=== PATIENT | female | born 1950 | race Caucasian/White ===

== ENCOUNTER → 2017-10-05 | Outpatient (CLI) | payer MEDICARE ==
--- NOTE | 2017-10-06 14:46 | MM ---
Reason for exam: screening (asymptomatic). Last mammogram was performed 2 years and 8 months ago. History: Patient history of other cancer. MG 3D Screening Mammo W/Cad Bilateral CC and MLO view(s) were taken. Prior study comparison: January 25, 2015, mammogram, performed at [facility]. There are scattered fibroglandular densities. There is chronic nodularity bilaterally. No significant changes when compared with prior studies. ASSESSMENT: Negative, BI-RAD 1 RECOMMENDATION: Routine screening mammogram of both breasts in 1 year.
== END | disposition home or self-care (01) ==
LOC: RADMAMWWP 16:40
PROVIDERS: ATTEND Family Medicine
DX: Z12.31 Encounter for screening mammogram for malignant neoplasm of breast (principal)
CPT/HCPCS: 77063; 77067

== ENCOUNTER 2019-02-13 12:47 | Emergency (ER) | payer MEDICARE ==
[2019-02-13 13:51] VITALS: TEMP 98.6
[2019-02-13] MEDS ORDERED: KETOROLAC 30 MG/ML 1 ML VIAL IVP STA (14:23)
[2019-02-13] MEDS ORDERED: ONDANSETRON 4 MG/2 ML VIAL IVP STA (14:23)
[2019-02-13] MEDS ORDERED: SODIUM CHLORIDE 0.9% 1,000 ML IV STA (14:23)
[2019-02-13 14:49] LABS: Basophils # (A) 0.1 k/uL (0-0.2); Basophils % (A) 1 %; Eosinophils # (A) 0.1 k/uL (0-0.7); Eosinophils % (A) 1 %; HCT 49.1 % (34.0-46.0); HGB 15.9 gm/dL (11.4-16.0); Lymphocytes # (A) 3.1 k/uL (1.0-4.8); Lymphocytes % (A) 31 %; MCHC 32.4 g/dL (31.0-37.0); MCV 92.5 fL (80.0-100.0); Mean Platelet Volume 6.9; Monocytes # (A) 0.6 k/uL (0-1.0); Monocytes % (A) 6 %; Neutrophils # (A) 6.1 k/uL (1.3-7.7); Neutrophils % (A) 60 %; Platelet Count 264 k/uL (150-450); RBC 5.31 m/uL (3.80-5.40); RDW 15.2 % (11.5-15.5); WBC 10.1 k/uL (3.8-10.6)
--- NOTE | 2019-02-13 14:55 | ED ---
General Adult HPI - General Chief complaint: Recheck/Abnormal Lab/Rx Stated complaint: Growing lump, not eating Time Seen by Provider: 02/13/19 13:58 Source: patient Mode of arrival: ambulatory Limitations: no limitations - History of Present Illness Initial comments: Patient is a 68-year-old female presenting to the ER with complaints of a lump on her left upper quadrant that has been there for 1 year, but states it is getting worse last week. Patient states she spoke to her PCP regarding the lump on the left side of her abdomen but states nothing was really done about it. Patient states in the last week she is having a lot more abdominal pain, thinks the growth is growing, and she is experiencing nausea, pain radiating to her back, fatigue, and pain when she eats food. Patient also admits to having night sweats as well as sweating periods during the day. Patient denies having fever, chills, vomiting, diarrhea. Patient states her last BM was this morning and was normal for her. 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 She actually has a follow-up appointment with her surgeon tomorrow to discuss whether or not she needs radiation to the area. Patient also admits to having a small portion of her bowel resected due to a small cancerous lesion that was found about 6 years ago. She did not require any additional treatment after the surgery. - Related Data Home Medications Medication Instructions Recorded Confirmed ALPRAZolam [Xanax] 0.5 mg PO DAILY PRN 02/13/19 02/13/19 Cholecalciferol [Vitamin D3 (25 1,000 unit PO DAILY 02/13/19 02/13/19 Mcg = 1000 Iu)] traMADol HCL [Ultram] 50 mg PO DAILY PRN 02/13/19 02/13/19 Allergies Allergy/AdvReac Type Severity Reaction Status Date / Time meperidine [From Demerol] Allergy Unknown Verified 02/13/19 18:07 Childhood risedronate sodium AdvReac BONES HURT Verified 02/13/19 18:07 [From Actonel] Review of Systems ROS Statement: Those systems with pertinent positive or pertinent negative responses have been documented in the HPI. ROS Other: All systems not noted in ROS Statement are negative. Past Medical History Additional Past Medical History / Comment(s): perirectal ca, eye spasms, atrhtitis, vericus foot ca History of Any Multi-Drug Resistant Organisms: None Reported Past Surgical History: Tubal Ligation Additional Past Surgical History / Comment(s): perirectalt umor removed, verucus foot tumor removed, bowel resection r/t precancerous Past Psychological History: Anxiety Smoking Status: Never smoker Past Alcohol Use History: None Reported Past Drug Use History: None Reported General Exam - General Exam Comments Initial Comments: GENERAL: Well-appearing, well-nourished and in no acute distress. HEAD: Atraumatic, normocephalic. EYES: Pupils equal round and reactive to light, extraocular movements intact, sclera anicteric, conjunctiva are normal. ENT: TMs normal, nares patent, oropharynx clear without exudates. Moist mucous membranes. NECK: Normal range of motion, supple without lymphadenopathy or JVD. LUNGS: Breath sounds clear to auscultation bilaterally and equal. No wheezes rales or rhonchi. HEART: Regular rate and rhythm without murmurs, rubs or gallops. ABDOMEN: Generalized tenderness to all quadrants, increased tenderness to the left upper quadrant. Soft, normoactive bowel sounds. No guarding, no rebound. No masses appreciated. : Deferred EXTREMITIES: Normal range of motion, no pitting or edema. No clubbing or cyano sis. NEUROLOGICAL: Cranial nerves II through XII grossly intact. Normal speech, normal gait. PSYCH: Normal mood, normal affect. SKIN: Warm, Dry, normal turgor, no rashes or lesions noted. Limitations: no limitations Course Vital Signs 02/13/19 02/13/19 02/13/19 13:46 15:02 15:03 Temperature 98.6 F Pulse Rate 95 80 82 Respiratory 18 18 18 Rate Blood Pressure 135/79 135/79 135/79 O2 Sat by Pulse 98 96 96 Oximetry 02/13/19 02/13/19 02/13/19 15:30 16:30 17:00 Temperature Pulse Rate 86 82 85 Respiratory 18 16 18 Rate Blood Pressure 135/79 127/60 125/62 O2 Sat by Pulse 98 99 96 Oximetry 02/13/19 18:00 Temperature Pulse Rate 80 Respiratory 17 Rate Blood Pressure 141/79 O2 Sat by Pulse 95 Oximetry Medical Decision Making - Medical Decision Making Patient is a 68-year-old female complaining of left upper quadrant abdominal pain along with a lump times one week. Patient states she has had a lump there for over a year but the last week has increased in pain and size. Patient admits to history of a. Anal tumor that was removed as 6 months ago and also a small lesion in her colon that was resected about 6 years ago. Patient states she's been having increase in pain with eating, fatigue, and sweats at nighttime. On exam patient has generalized abdominal tenderness with an increase in tenderness in the left upper quadrant. Patient denies fever, chills, vomiting, diarrhea. CBC, coags, CMP, urine are all within normal limits. Chest x-ray reveals possible COPD. No acute processes. CT of the abdomen has a few nonspecific findings. There is no soft tissue mass or intra-abdominal mass identified in the left side of the abdomen. Patient does have a 1.5 cm left adrenal adenoma , 2.9 cm left ovarian cyst, and 5.6 cm right renal cyst. Findings were discussed with patient and she was given a copy of the CT results. Patient will be discharged home with follow-up with her PCP. Patient is okay with these findings. Case discussed with Dr. Bah. - Lab Data Result diagrams: 02/13/19 14:35 02/13/19 14:35 Lab Results 02/13/19 02/13/19 02/13/19 Range/Units 14:35 14:35 14:35 WBC 10.1 (3.8-10.6) k/uL RBC 5.31 (3.80-5.40) m/uL Hgb 15.9 (11.4-16.0) gm/dL Hct 49.1 H (34.0-46.0) % MCV 92.5 (80.0-100.0) fL MCH 30.0 (25.0-35.0) pg MCHC 32.4 (31.0-37.0) g/dL RDW 15.2 (11.5-15.5) % Plt Count 264 (150-450) k/uL Neutrophils % 60 % Lymphocytes % 31 % Monocytes % 6 % Eosinophils % 1 % Basophils % 1 % Neutrophils # 6.1 (1.3-7.7) k/uL Lymphocytes # 3.1 (1.0-4.8) k/uL Monocytes # 0.6 (0-1.0) k/uL Eosinophils # 0.1 (0-0.7) k/uL Basophils # 0.1 (0-0.2) k/uL PT 9.4 (9.0-12.0) sec INR 0.9 (<1.2) APTT 22.4 (22.0-30.0) sec Sodium 140 (137-145) mmol/L Potassium 4.2 (3.5-5.1) mmol/L Chloride 103 (98-107) mmol/L Carbon Dioxide 27 (22-30) mmol/L Anion Gap 10 mmol/L BUN 15 (7-17) mg/dL Creatinine 0.88 (0.52-1.04) mg/dL Est GFR (CKD-EPI)AfAm 79 (>60 ml/min/1.73 sqM) Est GFR (CKD-EPI)NonAf 69 (>60 ml/min/1.73 sqM) Glucose 88 (74-99) mg/dL Calcium 9.9 (8.4-10.2) mg/dL Total Bilirubin 0.4 (0.2-1.3) mg/dL AST 24 (14-36) U/L ALT 24 (9-52) U/L Alkaline Phosphatase 81 (38-126) U/L Total Protein 7.6 (6.3-8.2) g/dL Albumin 4.6 (3.5-5.0) g/dL Amylase 65 (30-110) U/L Lipase 131 (23-300) U/L Urine Color Urine Appearance (Clear) Urine pH (5.0-8.0) Ur Specific [place] (1.001-1.035) Urine Protein (Negative) Urine Glucose (UA) (Negative) Urine Ketones (Negative) Urine Blood (Negative) Urine Nitrite (Negative) Urine Bilirubin (Negative) Urine Urobilinogen (<2.0) mg/dL Ur Leukocyte Esterase (Negative) Urine RBC (0-5) /hpf Urine WBC (0-5) /hpf Ur Squamous Epith Cells (0-4) /hpf Hyaline Casts (0-2) /lpf Urine Mucus (None) /hpf 02/13/ Range/Units 15:10 WBC (3.8-10.6) k/uL RBC (3.80-5.40) m/uL Hgb (11.4-16.0) gm/dL Hct (34.0-46.0) % MCV (80.0-100.0) fL MCH (25.0-35.0) pg MCHC (31.0-37.0) g/dL RDW (11.5-15.5) % Plt Count (150-450) k/uL Neutrophils % % Lymphocytes % % Monocytes % % Eosinophils % % Basophils % % Neutrophils # (1.3-7.7) k/uL Lymphocytes # (1.0-4.8) k/uL Monocytes # (0-1.0) k/uL Eosinophils # (0-0.7) k/uL Basophils # (0-0.2) k/uL PT (9.0-12.0) sec INR (<1.2) APTT (22.0-30.0) sec Sodium (137-145) mmol/L Potassium (3.5-5.1) mmol/L Chloride (98-107) mmol/L Carbon Dioxide (22-30) mmol/L Anion Gap mmol/L BUN (7-17) mg/dL Creatinine (0.52-1.04) mg/dL Est GFR (CKD-EPI)AfAm (>60 ml/min/1.73 sqM) Est GFR (CKD-EPI)NonAf (>60 ml/min/1.73 sqM) Glucose (74-99) mg/dL Calcium (8.4-10.2) mg/dL Total Bilirubin (0.2-1.3) mg/dL AST (14-36) U/L ALT (9-52) U/L Alkaline Phosphatase (38-126) U/L Total Protein (6.3-8.2) g/dL Albumin (3.5-5.0) g/dL Amylase (30-110) U/L Lipase (23-300) U/L Urine Color Yellow Urine Appearance Clear (Clear) Urine pH 5.5 (5.0-8.0) Ur Specific [place] 1.011 (1.001-1.035) Urine Protein Negative (Negative) Urine Glucose (UA) Negative (Negative) Urine Ketones Negative (Negative) Urine Blood Small H (Negative) Urine Nitrite Negative (Negative) Urine Bilirubin Negative (Negative) Urine Urobilinogen <2.0 (<2.0) mg/dL Ur Leukocyte Esterase Negative (Negative) Urine RBC 4 (0-5) /hpf Urine WBC 1 (0-5) /hpf Ur Squamous Epith Cells 1 (0-4) /hpf Hyaline Casts 3 H (0-2) /lpf Urine Mucus Rare H (None) /hpf Disposition Clinical Impression: Abdominal pain Disposition: HOME SELF-CARE Condition: Stable Instructions (If sedation given, give patient instructions): Abdominal Pain (ED) Additional Instructions: Please return to the Emergency Department if symptoms worsen or any other concerns. Follow-up with PCP as discussed. Is patient prescribed a controlled substance at d/c from ED?: No Referrals: Regulo Martino MD [Primary Care Provider] - 1-2 days
[2019-02-13 14:57] LABS: Albumin 4.6 g/dL (3.5-5.0); Calcium 9.9 mg/dL (8.4-10.2); Potassium 4.2 mmol/L (3.5-5.1); Total Bilirubin 0.4 mg/dL (0.2-1.3); Total Protein 7.6 g/dL (6.3-8.2)
[2019-02-13 14:59] LABS: INR 0.9 (<1.2); Partial Thromboplastin Time 22.4 sec (22.0-30.0); Prothrombin Time 9.4 sec (9.0-12.0)
[2019-02-13 15:21] LABS: Appearance,Urine Clear (Clear); Bilirubin,Urine Negative (Negative); Blood,Urine Small (Negative); Color,Urine Yellow; Glucose,Urine (UA) Negative (Negative); Hyaline Casts,Urine 3 /lpf (0-2); Ketones,Urine Negative (Negative); Leukocyte Esterase,Urine Negative (Negative); Mucus,Urine Rare /hpf; Nitrite,Urine Negative (Negative); PH, Urine 5.5 (5.0-8.0); Protein,Urine Negative (Negative); RBC,Urine 4 /hpf (0-5); Specific Gravity,Urine 1.011 (1.001-1.035); Squamous Epithelial Cell,Urine 1 /hpf (0-4); Urobilinogen,Urine <2.0 mg/dL (<2.0)
--- NOTE | 2019-02-13 16:19 | XR ---
EXAMINATION TYPE: XR chest 2V DATE OF EXAM: 02/13/2019 COMPARISON: None HISTORY: 68-year-old female cough and pain TECHNIQUE: PA and lateral views FINDINGS: The cardiomediastinal silhouette, aorta, and pulmonary vasculature are within normal limits. Mild int erstitial prominence and mild hyperinflation. Otherwise, lungs and pleural spaces are clear. IMPRESSION: Possible underlying COPD. No acute cardiopulmonary process.
--- NOTE | 2019-02-13 17:40 | CT ---
EXAMINATION TYPE: CT abdomen pelvis w con DATE OF EXAM: 02/13/2019 COMPARISON: 09/21/2010 HISTORY: 68-year-old female with pain, Lump to left abdomen since May 2018. TECHNIQUE: Contiguous axial scanning of the abdomen and pelvis following administration of 100 ml Iso mary beth 300 IV contrast. Delayed images through the kidneys and coronal/sagittal reconstructions perform ed. CT DLP: 589.2 mGycm Automated exposure control for dose reduction was used. FINDINGS: Heart normal size with trace anterior pericardial fluid. Lung bases clear with some strandy atelectasis. Mild emphysematous change at the lung bases. Tiny hiatal hernia. Low attenuation of the hepatic parenchyma without focal lesion seen. Portal venous system is patent. No biliary ductal dilatation. Gallbladder, right adrenal gland, spleen, and pancreas appear within normal limits. 1.5 cm nodularity left adrenal gland slightly larger from 1.3 cm in 2011. Findings suggest a benign a nd underlying adrenal adenoma. A large anterior cyst right kidney measures 5.6 cm versus 3.6 cm back in 2011. Moderate are atherosclerotic calcifications infrarenal abdominal aorta and iliac arteries. No dilated small bowel, free fluid, or free air. No mesenteric or retroperitoneal lymphadenopathy. There is moderate stool burden without pericolonic inflammatory change. A sided colonic diverticulosi s, greatest in the sigmoid colon. Some surgical material is present along the cecum. Bladder urine distended. Uterus and ovaries are visualized. 2.9 cm cystic lesion of the left ovary la rger from 1.9 cm back in 2010. No abnormal fluid collection in the pelvis or pelvic lymphadenopathy s een. Bones: Degenerative changes at the hips. Hypertrophic facet arthropathy and multilevel degenerative d isc disease throughout the visualized spine. IMPRESSION: 1. NO DISCRETE SUBCUTANEOUS SOFT TISSUE MASS OR INTRA-ABDOMINAL MASS IS IDENTIFIED, ESPECIALLY ON THE LEFT SIDE OF THE ABDOMEN. THE EXAM CAN BE REVIEWED WITH DIRECTED ATTENTION IF PERSISTENT CLINICAL CO NCERN. 2. A 1.5 CM LEFT ADRENAL ADENOMA IS SLIGHTLY LARGER FROM 2010 WHERE IT MEASURED 1.3 CM. 3. A 2.9 CM LEFT OVARIAN CYSTIC LESION IS LARGER FROM 2010 WHERE IT MEASURED 1.9 CM. NONEMERGENT FOLL OW-UP PELVIC ULTRASOUND CAN FURTHER CHARACTERIZE AND ESTABLISH FOLLOW-UP GUIDELINES IN THIS POSTMENOP AUSAL PATIENT. 4. A 5.6 CM RIGHT RENAL CYST INCREASED IN SIZE FROM 3.6 CM BACK IN 2010. 5. HEPATIC STEATOSIS AND TINY HIATAL HERNIA. 6. LEFT-SIDED COLONIC DIVERTICULOSIS WITHOUT ACUTE DIVERTICULITIS.
[2019-02-13 18:48] VITALS: BP 133/68; PULSE 72; RESP 18
== END 2019-02-13 19:02 | disposition home or self-care (01) ==
LOC: EC 12:47
DX: R10.84 Generalized abdominal pain (principal); D35.02 Benign neoplasm of left adrenal gland; N83.202 Unspecified ovarian cyst, left side; N28.1 Cyst of kidney, acquired; Z85.048 Personal history of other malignant neoplasm of rectum, rectosigmoid junction, and anus; Z79.899 Other long term (current) drug therapy; Z88.5 Allergy status to narcotic agent; Z88.8 Allergy status to other drugs, medicaments and biological substances
CPT/HCPCS: 36415; 80053; 82150; 83690; 85025; 85610; 85730; 81001; 71046; 74177; 99284; 96374; 96375; 96361; J2405; J1885; Q9967

== ENCOUNTER → 2021-12-05 | Outpatient (CLI) | payer MEDICARE ==
--- NOTE | 2021-12-05 15:32 | US ---
EXAMINATION TYPE: US pelvis complete transvag DATE OF EXAM: 12/05/2021 COMPARISON: CT dated 02/13/2019 CLINICAL HISTORY: R10.2 PELVIC AND PERINEAL PAIN. Pelvic pain on the right side. Hx 2 C Sections, quentin endectomy. Hx left ovarian cyst. . TECHNIQUE: Transvaginal (TV) and Transabdominal (TA) . Transabdominal sonographic images of the pel vis were acquired. Transvaginal sonographic images were medically necessary to better assess the fol lowing anatomy: Right ovary. Date of LMP: About 20 years ago. EXAM MEASUREMENTS: Uterus: 5.5 x 3.6 x 1.9 cm Endometrial Stripe: 0.30 cm Right Ovary: Obscured. Left Ovary: 3.8 x 2.5 x 2.7 cm 1. Uterus: Anteverted 2. Endometrium: Measures 0.3 cm. 3. Right Ovary: Obscured. 4. Left Ovary: Anechoic area seen: 2.8 x 1.8 x 2.0 cm. 5. Bilateral Adnexa: Appears wnl. 6. Posterior cul-de-sac: Fluid visualized. IMPRESSION: Left ovarian cyst is chronic
== END | disposition home or self-care (01) ==
LOC: RADUSWWP 13:59
PROVIDERS: ATTEND Family Medicine
DX: N83.202 Unspecified ovarian cyst, left side (principal)
CPT/HCPCS: 76830; 76856

== ENCOUNTER 2022-02-12 17:01 | Emergency (ER) | payer MEDICARE ==
[2022-02-12 17:53] VITALS: TEMP 97.9
[2022-02-12] MEDS ORDERED: SODIUM CHLORIDE 0.9% 1,000 ML IV STA (19:20)
[2022-02-12] MEDS ORDERED: KETOROLAC 15 MG/ML 1 ML VIAL IVP STA (19:20)
--- NOTE | 2022-02-12 19:27 | ED ---
Abdominal Pain HPI - General Chief Complaint: Abdominal Pain Stated Complaint: L side/back pain Time Seen by Provider: 02/12/22 19:12 Source: patient, RN notes reviewed Mode of arrival: wheelchair Limitations: no limitations - History of Present Illness Initial Comments: This is a pleasant 71-year-old female presents to emergency complaining of left flank pain. Patient states that she fell about one week ago and had some soreness on that side. However she states that it was very mild. Patient states last night she started getting pain in the left flank which seems to radiate from her left CVA area around to her groin. Patient states this is made worse with movement and palpation. Assistances that she has some shortness of breath. She states she's had sporadic and fleeting chest pains. Patient denying any hematuria. Denies any nausea or vomiting. Pain is alleviated by position. Note that the patient does have a history of melanoma. No recent surgeries. No headache, no fever or chills, no changes in vision or hearing, no sore throat or difficulty with speech, no neck pain, no nausea or vomiting, no changes in urination or bowel movements, no numbness or tingling, no extremity pain, no skin rashes or lesions. MD Complaint: flank pain - Related Data Home Medications Medication Instructions Recorded Confirmed ALPRAZolam [Xanax] 0.5 mg PO HS 02/13/19 02/12/22 Allergies Allergy/AdvReac Type Severity Reaction Status Date / Time meperidine [From Demerol] Allergy Unknown Verified 02/12/22 22:26 Childhood risedronate sodium AdvReac BONES HURT Verified 02/12/22 22:26 [From Actonel] Review of Systems ROS Statement: Those systems with pertinent positive or pertinent negative responses have been documented in the HPI. ROS Other: All systems not noted in ROS Statement are negative. Past Medical History Additional Past Medical History / Comment(s): perirectal ca, eye spasms, atrhtitis, vericus foot ca History of Any Multi-Drug Resistant Organisms: None Reported Past Surgical History: Tubal Ligation Additional Past Surgical History / Comment(s): perirectalt umor removed, verucus foot tumor removed, bowel resection r/t precancerous Past Psychological History: Anxiety Smoking Status: Never smoker Past Alcohol Use History: None Reported Past Drug Use History: None Reported General Exam - General Exam Comments Initial Comments: Patient does not appear to be ill or toxic. Vital signs reviewed Limitations: no limitations General appearance: alert, in no apparent distress Head exam: Present: atraumatic, normocephalic, normal inspection Eye exam: Present: normal appearance, PERRL, EOMI. Absent: scleral icterus, conjunctival injection, periorbital swelling ENT exam: Present: normal exam, normal oropharynx, mucous membranes moist, normal external ear exam. Absent: mucous membranes dry Neck exam: Present: normal inspection, full ROM. Absent: tenderness, meningismus, lymphadenopathy Respiratory exam: Present: normal lung sounds bilaterally, chest wall tenderness (Left chest wall overlying the lower ribs, also reproducible with range of motion of the torso). Absent: respiratory distress, wheezes, rales, rhonchi, stridor, accessory muscle use, decreased breath sounds, prolonged expiratory Cardiovascular Exam: Present: regular rate, normal rhythm, normal heart sounds. Absent: systolic murmur, diastolic murmur, rubs, gallop, clicks GI/Abdominal exam: Present: soft, normal bowel sounds. Absent: distended, tenderness, guarding, rebound, rigid Extremities exam: Present: normal inspection, full ROM, normal capillary refill. Absent: tenderness, pedal edema, joint swelling, calf tenderness Back exam: Present: normal inspection Neurological exam: Present: alert, oriented X3, CN II-XII intact Psychiatric exam: Present: normal affect, normal mood Skin exam: Present: warm, dry, intact, normal color. Absent: rash Course Vital Signs 02/12/22 02/12/22 17:51 23:48 Temperature 97.9 F Pulse Rate 100 92 Respiratory 16 15 Rate Blood Pressure 166/81 157/92 O2 Sat by Pulse 97 97 Oximetry - Reevaluation(s) Reevaluation #1: 02/12/22 23:27 Medical record is reviewed Symptoms are improved here in the emergency department Patient is informed of results and questions answered Patient in no distress Medical Decision Making - Medical Decision Making Patient is PERC 2. Patient's CT of the pelvis shows a 1.6 cm low density left adrenal mass which is unchanged from previous study, 6 cm right kidney cyst, no hydronephrosis, no evidence of ureterolithiasis, no hydroureter, no free fluid the study was read by radiology. There is sigmoid diverticulosis. CTA of the chest for pulmonary ambles and reveals no evidence of pulmonary embolism. No pulmonary mass. Minimal subsegmental atelectasis. Suspect the patient's injury is [place] skeletal. We did discuss possibility of rib contusion versus occult rib fracture. Patient's CT of the chest was essentially negative. CT of the abdomen did not show any evidence of ureteral stone or any reason for the patient's left flank pain. This is reproducible pain which is produced with palpation and range of motion. Patient was informed about the left adrenal mass and the right renal cyst. Early shingles possible less likely With the 7 red cells per high-power field there is a possibility of a recently passed. Patient's nonspecific fleeting chest wall pains are atypical. Does not appear to be consistent with ischemic pain. Troponin was negative. EKG showed no acute changes. Early shingles possible less likely The case was discussed in detail with ED attending physician. Presentation, findings, treatment plan discussed in detail. Marketing Traffic Manager Dr. Patel - Lab Data Result diagrams: 02/12/22 19:43 02/12/22 19:43 Lab Results 02/12/22 02/12/22 02/12/22 Range/Units 19:43 19:43 19:43 WBC 11.1 H (3.8-10.6) k/uL RBC 5.32 (3.80-5.40) m/uL Hgb 16.6 H (11.4-16.0) gm/dL Hct 50.9 H (34.0-46.0) % MCV 95.7 (80.0-100.0) fL MCH 31.1 (25.0-35.0) pg MCHC 32.5 (31.0-37.0) g/dL RDW 13.4 (11.5-15.5) % Plt Count 308 (150-450) k/uL MPV 6.9 Neutrophils % 65 % Lymphocytes % 27 % Monocytes % 4 % Eosinophils % 1 % Basophils % 2 % Neutrophils # 7.2 (1.3-7.7) k/uL Lymphocytes # 3.0 (1.0-4.8) k/uL Monocytes # 0.5 (0-1.0) k/uL Eosinophils # 0.1 (0-0.7) k/uL Basophils # 0.2 (0-0.2) k/uL D-Dimer (<0.60) mg/L FEU Sodium 137 (137-145) mmol/L Potassium 4.7 (3.5-5.1) mmol/L Chloride 101 (98-107) mmol/L Carbon Dioxide 28 (22-30) mmol/L Anion Gap 8 mmol/L BUN 12 (7-17) mg/dL Creatinine 0.96 (0.52-1.04) mg/dL Est GFR (CKD-EPI)AfAm 69 (>60 ml/min/1.73 sqM) Est GFR (CKD-EPI)NonAf 60 (>60 ml/min/1.73 sqM) Glucose 89 (74-99) mg/dL Calcium 10.0 (8.4-10.2) mg/dL Total Bilirubin 0.4 (0.2-1.3) mg/dL AST 25 (14-36) U/L ALT 20 (4-34) U/L Alkaline Phosphatase 105 (38-126) U/L Troponin I (0.000-0.034) ng/mL Total Protein 7.9 (6.3-8.2) g/dL Albumin 4.8 (3.5-5.0) g/dL Lipase 94 (23-300) U/L Urine Color Yellow Urine Appearance Clear (Clear) Urine pH 5.5 (5.0-8.0) Ur Specific [place] 1.009 (1.001-1.035) Urine Protein Trace H (Negative) Urine Glucose (UA) Negative (Negative) Urine Ketones Negative (Negative) Urine Blood Small H (Negative) Urine Nitrite Negative (Negative) Urine Bilirubin Negative (Negative) Urine Urobilinogen <2.0 (<2.0) mg/dL Ur Leukocyte Esterase Negative (Negative) Urine RBC 7 H (0-5) /hpf Ur Squamous Epith Cells 1 (0-4) /hpf 02/12/22 02/12/22 Range/Units 19:43 19:43 WBC (3.8-10.6) k/uL RBC (3.80-5.40) m/uL Hgb (11.4-16.0) gm/dL Hct (34.0-46.0) % MCV (80.0-100.0) fL MCH (25.0-35.0) pg MCHC (31.0-37.0) g/dL RDW (11.5-15.5) % Plt Count (150-450) k/uL MPV Neutrophils % % Lymphocytes % % Monocytes % % Eosinophils % % Basophils % % Neutrophils # (1.3-7.7) k/uL Lymphocytes # (1.0-4.8) k/uL Monocytes # (0-1.0) k/uL Eosinophils # (0-0.7) k/uL Basophils # (0-0.2) k/uL D-Dimer 0.65 H (<0.60) mg/L FEU Sodium (137-145) mmol/L Potassium (3.5-5.1) mmol/L Chloride (98-107) mmol/L Carbon Dioxide (22-30) mmol/L Anion Gap mmol/L BUN (7-17) mg/dL Creatinine (0.52-1.04) mg/dL Est GFR (CKD-EPI)AfAm (>60 ml/min/1.73 sqM) Est GFR (CKD-EPI)NonAf (>60 ml/min/1.73 sqM) Glucose (74-99) mg/dL Calcium (8.4-10.2) mg/dL Total Bilirubin (0.2-1.3) mg/dL AST (14-36) U/L ALT (4-34) U/L Alkaline Phosphatase (38-126) U/L Troponin I <0.012 (0.000-0.034) ng/mL Total Protein (6.3-8.2) g/dL Albumin (3.5-5.0) g/dL Lipase (23-300) U/L Urine Color Urine Appearance (Clear) Urine pH (5.0-8.0) Ur Specific [place] (1.001-1.035) Urine Protein (Negative) Urine Glucose (UA) (Negative) Urine Ketones (Negative) Urine Blood (Negative) Urine Nitrite (Negative) Urine Bilirubin (Negative) Urine Urobilinogen (<2.0) mg/dL Ur Leukocyte Esterase (Negative) Urine RBC (0-5) /hpf Ur Squamous Epith Cells (0-4) /hpf - EKG Data EKG Comments: EKG done at 1931 and read by the ED attending physician reveals sinus rhythm with possible right atrial enlargement, left atrial enlargement by computerized interpretation. Normal intervals. Normal axis. No acute ST or T-wave changes. Rate is 79 - Radiology Data Radiology results: report reviewed, image reviewed Disposition Clinical Impression: Acute chest wall pain, Rib pain on left side, Adrenal mass, left, Renal cyst, right, Diverticulosis Disposition: HOME SELF-CARE Condition: Stable Instructions (If sedation given, give patient instructions): Costochondritis (ED) Additional Instructions: Follow-up with her regular doctor to have the right renal cyst and left adrenal mass monitored. Take the medication as directed. You can call your regular doctor to see if you can take tramadol more frequently for pain. Follow-up with your regular physician as directed. Return to the ER immediately if any symptoms worsen, new symptoms arise, or any other problems develop. Is patient prescribed a controlled substance at d/c from ED?: No Referrals: Regulo Martino MD [REFERRING] - 1-2 days Time of Disposition: 23:27
[2022-02-12 19:54] LABS: Basophils # (A) 0.2 k/uL (0-0.2); Basophils % (A) 2 %; Eosinophils # (A) 0.1 k/uL (0-0.7); Eosinophils % (A) 1 %; HCT 50.9 % (34.0-46.0); HGB 16.6 gm/dL (11.4-16.0); Lymphocytes % (A) 27 %; MCH 31.1 pg (25.0-35.0); MCHC 32.5 g/dL (31.0-37.0); MCV 95.7 fL (80.0-100.0); Mean Platelet Volume 6.9; Monocytes # (A) 0.5 k/uL (0-1.0); Monocytes % (A) 4 %; Neutrophils # (A) 7.2 k/uL (1.3-7.7); Neutrophils % (A) 65 %; Platelet Count 308 k/uL (150-450); RBC 5.32 m/uL (3.80-5.40); RDW 13.4 % (11.5-15.5); WBC 11.1 k/uL (3.8-10.6)
[2022-02-12 19:57] LABS: Appearance,Urine Clear (Clear); Bilirubin,Urine Negative (Negative); Blood,Urine Small (Negative); Color,Urine Yellow; Glucose,Urine (UA) Negative (Negative); Ketones,Urine Negative (Negative); Leukocyte Esterase,Urine Negative (Negative); Nitrite,Urine Negative (Negative); PH, Urine 5.5 (5.0-8.0); Protein,Urine Trace (Negative); RBC,Urine 7 /hpf (0-5); Specific Gravity,Urine 1.009 (1.001-1.035); Squamous Epithelial Cell,Urine 1 /hpf (0-4); Urobilinogen,Urine <2.0 mg/dL (<2.0)
[2022-02-12 20:04] LABS: Albumin 4.8 g/dL (3.5-5.0); Potassium 4.7 mmol/L (3.5-5.1); Total Bilirubin 0.4 mg/dL (0.2-1.3); Total Protein 7.9 g/dL (6.3-8.2)
--- NOTE | 2022-02-12 20:14 | XR ---
EXAMINATION TYPE: XR abdomen acute w cxr DATE OF EXAM: 02/12/2022 COMPARISON: None HISTORY: Left flank pain TECHNIQUE: Acute abdominal series performed with a frontal chest upright and supine views abdomen. FINDINGS: Heart size is normal. Pulmonary vasculature is normal. No free air is under the diaphragm. Normal colonic bowel gas is present. Organomegaly is not evident. No suspicious renal calcifications are present. There appears to be a large round calcification in the right upper quadrant measuring 2. 5 cm could be gallstone. Bowel gas pattern appears unremarkable. Mild degenerative changes are at the bilateral hips. IMPRESSION: 1. No suspicious acute changes. 2. Gallstone is not excluded.
[2022-02-12] MEDS ORDERED: DIAZEPAM 5 MG/ML 2 ML INJ IVP STA (21:11)
--- NOTE | 2022-02-12 22:10 | CT ---
EXAMINATION TYPE: CT chest angio for PE DATE OF EXAM: 02/12/2022 COMPARISON: None HISTORY: elevated d-dimer CT DLP: 260.3 mGycm Automated exposure control for dose reduction was used. CONTRAST: Performed with IV Contrast, patient injected with 63 mL of Isovue 370. There are Three-D postprocessed images. The lungs are clear of consolidation. No evidence of a pulmonary mass. No pleural effusion. Heart siz e is normal. No pericardial effusion. There are no hilar masses. There is no mediastinal adenopathy. Thoracic aorta is intact. No aneurysm. There is normal contrast opacification of the pulmonary arteri es. No filling defects. Upper abdominal soft tissues are intact. Thoracic Normal alignment. No compression fracture. Sternum is intact. No evidence of rib fracture. IMPRESSION: Negative exam. No evidence of pulmonary embolism. No suspicious pulmonary mass. There is minimal subs egmental atelectasis at the posterior lung bases.
--- NOTE | 2022-02-12 22:16 | CT ---
EXAMINATION TYPE: CT abdomen pelvis wo con DATE OF EXAM: 02/12/2022 COMPARISON: 02/13/2019 HISTORY: left side flank pain CT DLP: 460.3 mGycm Automated exposure control for dose reduction was used. Images obtained from the diaphragm to the floor the pelvis with no contrast. The lung bases are clear of infiltrate. No pleural effusion. Heart size is normal. No pericardial eff usion. Liver spleen pancreas and stomach appear intact. Gallbladder appears normal. The bile ducts ar e not dilated. There is 1.6 cm low density left adrenal mass unchanged. There is a 6 cm cortical cyst anterior right kidney. No hydronephrosis. Ureters are not dilated. There is no retroperitoneal adenopathy. There is previous surgery at the right colon. Bladder distends smoothly. No evidence of a pelvic mass. No jazmyne e fluid in the pelvis. Uterus is anteverted. No inguinal hernia. There are numerous sigmoid diverticu la. No diverticulitis. There is no mesenteric edema. No ascites or free air. No bowel obstruction. Abdominal aorta is athero matous. Lumbar vertebra appear intact. No compression fracture. Bony pelvis is intact. The hip joints are intact. Sacroiliac joints are intact. IMPRESSION: No acute abnormality in the abdomen and pelvis. No renal stone or obstruction. Large right renal aurora ical cyst. Sigmoid diverticulosis. Right hemicolectomy. No change compared to old exam.
[2022-02-12 23:49] VITALS: BP 157/92; PULSE 92; RESP 15
== END 2022-02-12 23:47 | disposition home or self-care (01) ==
LOC: EC 17:01
DX: E27.9 Disorder of adrenal gland, unspecified (principal); R07.89 Other chest pain; K57.90 Diverticulosis of intestine, part unspecified, without perforation or abscess without bleeding; R07.81 Pleurodynia; Z88.5 Allergy status to narcotic agent; Z88.8 Allergy status to other drugs, medicaments and biological substances
CPT/HCPCS: 36415; 93005; 85379; 80053; 83690; 84484; 85025; 81001; 74022; 71275; 74176; 99285; 96374; 96375; 96361; J3360; J1885; Q9967

== ENCOUNTER → 2023-03-02 | Outpatient (CLI) | payer MEDICARE ==
--- NOTE | 2023-03-03 19:36 | MM ---
Reason for Exam: Screening (asymptomatic). Last mammogram was performed 5 year(s) and 5 month(s) ago. Patient History: Menarche at age 14. First Full-Term at age 16. Postmenopausal. Other cancer. Risk Values: Trang 5 year model risk: 1.3%. NCI Lifetime model risk: 3.5%. Prior Study Comparison: 01/25/2015 Screening Mammogram, [facility]. 10/05/2017 Bilateral Screening Mammogram, [facility]. Tissue Density: There are scattered fibroglandular densities. Findings: Analyzed By CAD. Bilateral chronic nodularity. There is no suspicious group of microcalcifications or new suspicious mass in either breast. Overall Assessment: Benign, BI-RAD 2 Management: Screening Mammogram of both breasts in 1 year. . Patient should continue monthly self-breast exams. A clinical breast exam by your physician is recommended on an annual basis. This exam should not preclude additional follow-up of suspicious palpable abnormalities. Note on Trang scores and lifetime risk: 1. A Trang score greater than 3% is considered moderate risk. If this is the case, consider specialist referral to assess eligibility for a risk reducing agent. 2. If overall lifetime risk for the development of breast cancer is 20% or higher, the patient may qualify for future screening with alternating mammogram and breast MRI. Electronically signed and approved by: Malcom Li M.D. Radiologist
== END | disposition home or self-care (01) ==
LOC: RADMAMWWP 16:36
PROVIDERS: ATTEND Family Medicine
DX: Z12.31 Encounter for screening mammogram for malignant neoplasm of breast (principal); Z78.0 Asymptomatic menopausal state
CPT/HCPCS: 77067

== ENCOUNTER → 2023-04-15 | Outpatient (CLI) | payer MEDICARE ==
--- NOTE | 2023-04-15 14:38 | US ---
EXAMINATION TYPE: US arterial LE single level DATE OF EXAM: 04/15/2023 1:43 PM CLINICAL INDICATION: Female, 72 years old with history of I73.9 PERIPHERAL VASCULAR DISEASE, UNSPECIF IED; History of CAD and claudication; right leg pain; some right sided skin discoloration Doppler Waveforms: Right: Multiphasic Left: Multiphasic Right Brachial Pressure: 140 Left Brachial Pressure: 140 Ankle-Brachial Indices: Right: 0.99 Left: 1.09 Unable to detect the right SIGHT EFFECTS SPECIALIST (diminished vs absent); left SIGHT EFFECTS SPECIALIST is also diminished but obtainable. IMPRESSION: 1. Normal KANU indices. See above regarding posterior tibial vasculature.
== END | disposition home or self-care (01) ==
LOC: RADUSWWP 12:52
PROVIDERS: ATTEND Family Medicine
DX: I73.9 Peripheral vascular disease, unspecified (principal); I25.10 Atherosclerotic heart disease of native coronary artery without angina pectoris
CPT/HCPCS: 93923

== ENCOUNTER → 2024-02-15 | Outpatient (CLI) | payer MEDICARE ==
--- NOTE | 2024-02-15 23:46 | MR ---
EXAMINATION TYPE: MR lumbar spine wo con DATE OF EXAM: 02/15/2024 COMPARISON: PET CT May 29, 2023 HISTORY: Leg Pain x1 year - Center Lower Back pain. Spinal stenosis. TECHNIQUE: Multiplanar, multisequence imaging of the lumbar spine is performed without IV contrast. FINDINGS: Sagittal images of the lumbar spine show vertebral body heights to appear satisfactory. Min imal grade 1 anterolisthesis L4 on L5. Disc desiccation with mild disc space narrowing at L5-S1 level . The conus medullaris is normal in position and signal ending superior L1 level. The bone marrow s ignal intensity is within normal limits. Mild to moderate multilevel anterior spurring is seen. Axial images at T12-L1 level shows mild broad-based disc bulge minimally effaces the anterior thecal sac. Axial images at L1-L2 and L2-L3 levels show mild/moderate facet degenerative changes bilaterally. Spi nal canal is preserved. Axial images at L3-L4 level show mild facet arthropathy bilaterally. Spinal canal is preserved. Axial images at L4-L5 levels and mild/moderate facet arthropathy and ligamentum flavum hypertrophy. T here is mild broad disc bulge. Spinal canal is preserved. Bilateral neural foramina are patent. Axial images at L5-S1 level mild facet arthropathy bilaterally. There is a broad-based central disc p rotrusion. Spinal canal is preserved as there is increased epidural fat. Bilateral neural foramina ar e patent. Paraspinal muscle bulk is maintained. Approximate 7.2 cm large thin-walled cyst in the right kidney a xial image 18 is redemonstrated. IMPRESSION: Mild to borderline moderate multilevel degenerative changes in lumbar spine as detailed a minoo.
== END | disposition home or self-care (01) ==
LOC: RADMRIMAIN 19:30
PROVIDERS: ATTEND Psychiatry & Neurology Neurology
DX: M47.816 Spondylosis without myelopathy or radiculopathy, lumbar region (principal); M48.061 Spinal stenosis, lumbar region without neurogenic claudication
CPT/HCPCS: 72148

== ENCOUNTER → 2024-06-22 | Outpatient (CLI) | payer MEDICARE ==
--- NOTE | 2024-06-22 13:52 | CT ---
EXAMINATION TYPE: CT chest wo con CT DLP: 431 mGycm, Automated exposure control for dose reduction was used. DATE OF EXAM: 06/22/2024 1:38 PM COMPARISON: PET CT 05/29/2023, CT low-dose lung 05/18/2023, CTA chest 02/12/2022 CLINICAL INDICATION:Female, 73 years old with history of J44.9 COPD R91.1 SOLITARY PULMONARY NODULE; [facility], TECHNIQUE: Multiple axial images were obtained through the chest without IV contrast. Lack of IV or o ral contrast limits evaluation of solid and hollow organ viscera. . Coronal and sagittal reformats re viewed. FINDINGS: LUNGS/ PLEURA: Mild centrilobular emphysematous changes. No focal consolidation, pneumothorax, or ple ural effusion. Redemonstration of a 1.5 cm nodular density with less solid appearance from prior exa mination along the right major fissure medially (series 4, image 43). This demonstrated some FDG acti vity in prior PET/CT. Development of a right midlung 3 mm nodule (series 4, image 28). AIRWAY: Patent and unremarkable.. HEART: Size within normal limits.Small pericardial effusion. Moderate coronary arterial calcification s. MEDIASTINUM: No gross evidence of adenopathy. VASCULATURE: No aortic aneurysm. Atherosclerotic calcification of the aorta and its branches. MUSCULOSKELETAL: Mild disc degeneration changes are present throughout the thoracolumbar spine. SOFT TISSUES/LYMPH NODES: Unremarkable. LOWER NECK: No significant findings. UPPER ABDOMEN: Small hiatal hernia. IMPRESSION: 1. Less solid appearance of right lower lobe pulmonary nodule which was mildly FDG avid on prior PET/ CT. Development of right midlung 3 mm pulmonary nodule. Follow-up CT chest in one year is recommended . 2. Mild COPD changes. [facility], , 06/22/2024 1:50 PM
== END | disposition home or self-care (01) ==
LOC: RADCTMAIN 13:20
PROVIDERS: ATTEND Internal Medicine Sleep Medicine
DX: J44.9 Chronic obstructive pulmonary disease, unspecified (principal); R91.1 Solitary pulmonary nodule
CPT/HCPCS: 71250

== ENCOUNTER → 2025-02-10 | Outpatient (CLI) | payer MEDICARE ==
--- NOTE | 2025-02-11 11:48 | MR ---
EXAMINATION TYPE: MR lumbar spine wo con DATE OF EXAM: 02/10/2025 7:22 PM COMPARISON: 02/15/2024. CLINICAL INDICATION: Female, 74 years old with history of M48.062 SPINAL STENOSIS, LUMBAR REGION WITH NEUROG; PHH, low back pain that radiates down both legs. TECHNIQUE: Multi planar, multi sequence imaging was performed utilizing: T1-weighted, T2-weighted, a nd turbo inversion recovery imaging of the lumbar spine. IV Contrast: mL (None, if empty) FINDINGS: Alignment: The lumbar vertebral bodies have preserved heights with grade 1 anterolisthesis of L4 on L 5. Cord: The conus medullaris and the distal spinal cord appear unremarkable with regards to their signa l intensity and morphology. Bones/Discs: Mild degeneration changes throughout the spine with osteophyte formation and facet joint arthropathy. Intervertebral disc signal is maintained. No abnormal inversion recovery signal to sugg est bony edema. T12-L1: No evidence of significant spinal canal stenosis or neural foraminal stenosis. L1-L2: No evidence of significant spinal canal stenosis. Facet joint arthropathy mild bilateral neura l foraminal stenosis. L2-L3: No evidence of significant spinal canal stenosis. Facet joint arthropathy mild bilateral neura l foraminal stenosis. L3-L4: No evidence of significant spinal canal stenosis. Facet joint arthropathy mild bilateral neura l foraminal stenosis. L4-L5: Disc uncovering from grade 1 anterolisthesis and facet joint arthropathy with mild spinal jacinta l stenosis and mild bilateral neural foraminal stenosis. L5-S1: The disc has a rounded posterior morphology without significant spinal canal stenosis. Facet j oint arthropathy with mild bilateral neural foraminal stenosis. No significant spinal canal or neural foraminal stenosis in the remainder of the visualized levels. Other findings: Simple appearing right renal cyst measuring up to 7.6 cm. No follow-up recommended. IMPRESSION: Overall no significant change from prior. 1. No definitive evidence of disc herniation or significant spinal canal stenosis. 2. Mild disc degeneration with associated osteoarthritic changes. No evidence for high-grade neural foraminal stenosis. [facility], , 02/11/2025 11:45 AM
== END | disposition home or self-care (01) ==
LOC: RADMRIMAIN 18:34
PROVIDERS: ATTEND Psychiatry & Neurology Neurology
DX: M48.062 Spinal stenosis, lumbar region with neurogenic claudication (principal); M51.360 Other intervertebral disc degeneration, lumbar region with discogenic back pain only; M47.816 Spondylosis without myelopathy or radiculopathy, lumbar region
CPT/HCPCS: 72148